=== PATIENT | female | born 1950 | race Caucasian/White ===

== ENCOUNTER → 2024-02-13 14:08 | Outpatient (REF) | payer MEDICARE, SELFPAY | LOC: RAD 14:08 | PROVIDERS: ATTENDING PHYSICIAN Student in an Organized Health Care Education/Training Program; REFERRING PHYSICIAN Internal Medicine Cardiovascular Disease | DX: E78.2 Mixed hyperlipidemia (principal); I77.9 Disorder of arteries and arterioles, unspecified; I67.89 Other cerebrovascular disease | CPT/HCPCS: 75571; 93880 ==

== ENCOUNTER 2024-06-25 16:54 | Emergency (ER) | payer MEDICARE, OTHER, SELFPAY ==
[2024-06-25 16:58] VITALS: BP 176/111
--- NOTE | 2024-06-25 16:58 | ED.GENMED ---
ED Provider Triage
<Lester Mora PA-C - Last Filed: 06/25/24 17:00>
-
Patient seen by provider in Triage?: Seen in Triage
Attestation: A medical screening examination has been initiated by a qualified medical provider. Based on the assessment performed at this time, it has been determined that an emergent medical condition may exist and the patient has been informed
that further medical evaluation and possible additional diagnostic testing may be needed.
HPI: 74-year-old female presenting to the ER for evaluation of rash and possible abscess to the left axillary area that she noticed today. States noticed some discomfort to the area and had obvious erythema and reportedly fluctuant area. No
history of similar. No history of diabetes and reports no fevers. Patient is otherwise stable. Will need room for exam and possible incision and drainage if truly abscess.
GENERAL: Alert , in no apparent distress
EYE: No visual abnormalities.
NECK: Trachea midline
ENT: No visible abnormalities.
LUNGS: No acute respiratory distress
NEUROLOGICAL: Alert and oriented
SKIN: Skin intact. No visible changes.
MUSCULOSKELETAL: Moving extremities normally
PSYCH: Normal and appropriate interaction.
This is a medical evaluation conducted in person to initiate diagnostic evaluation and provide initial therapeutics. Please see further documentation by the treating clinician.
History of Present Illness
<Lester Mora PA-C - Last Filed: 06/25/24 17:00>
General
Chief Complaint: Skin Problem
Time Seen by Provider: 06/25/24 19:02
<Dimitry Cardenas DO - Last Filed: 06/25/24 19:35>
History of Present Illness
History of Present Illness:
TIME OF INITIAL ENCOUNTER: 7:15 PM
HPI: The patient had been having a lesion to the left lower anterior chest wall that is described as fleshy in appearance. This was present over the last year or so. More recently however she noticed redness and increased pain. He made an
appointment for a hand weaver for tomorrow. She came in here because symptoms have worsened. No fevers.
EXAM:
GENERAL: Well appearing in no distress
HEENT: Moist oral mucosa
NEUROLOGIC: Excellent strength all extremities, no obvious coordination deficits
PSYCHIATRIC: Appropriate mental status, normal insight and judgement
EXTREMITIES: Nontender, no edema, moves all extremities equally
SKIN: There is a 1 cm fleshy growth however it also has a cystic component with some scant purulence noted located in the lower left anterior chest wall
NUMBER AND COMPLEXITY OF PROBLEMS ADDRESSED AT THE ENCOUNTER
� Chronic conditions affecting care: High blood pressure, hyperlipidemia, diverticular disease, anxiety/depression
� Acute Exacerbation and/or Progression of Chronic Illness: This is an acute problem
� Differential Diagnosis includes: Cellulitis, abscess, soft tissue infection
AMOUNT AND/OR COMPLEXITY OF DATA TO BE REVIEWED AND ANALYZED
� I performed an independent evaluation of and my interpretation is:
EKG:
CT:
X-rays:
Laboratory Studies:
Other:
� Review of other/old records: The patient was seen here with chest pain in 2022
� Clinical information was obtained by an independent historian: I spoke to at bedside
� Prescriptions/Medications Considered but not given:
� Further testing considered but not performed:
RISK OF COMPLICATIONS AND/OR MORBIDITY OR MORTALITY OF PATIENT MANAGEMENT
� Social determinants of health affecting care: Lives at home
� Discussion with other providers:
� Escalation of care including admission/observation vs risk of discharge considered: I cleaned the area, anesthetized with lidocaine with epi and used a scalpel and drained a moderate amount of purulent fluid. Will place on
Bactrim. The patient may or may not follow-up with the hand weaver tomorrow as this was previously already scheduled.
ANY OTHER UPDATES:
Past History
<Lester Mora PA-C - Last Filed: 06/25/24 17:00>
Past History
ED Past Medical History: HTN, Hypercholesterolemia and Hypothyroidism
ED Past Surgical History: Orthopedic
Patient has exhibited threatening behavior?: No
PSI?: No
Social History
Tobacco: Non-smoker
Phy Exam
<Dimitry Cardenas DO - Last Filed: 06/25/24 19:35>
Physical Exam
Physical Exam:
See HPI
Course
<Lester Mora PA-C - Last Filed: 06/25/24 17:00>
Orders/Labs/Results
Orders:
Orders
06/25/24 19:29
Sulfamethox./Trimethoprim Ds [Bactrim Ds 800 mg/160 mg] 1 tablet PO NOW STA
Vital Signs
Initial and Last Documented VS:
Initial Vital Signs
Temp Pulse Resp BP Pulse Ox
36.7 C 103 20 176/111 98
06/25/24 16:58 06/25/24 16:58 06/25/24 16:58 06/25/24 16:58 06/25/24 16:58
Last Documented Vital Signs
Temp Pulse Resp BP Pulse Ox
36.7 C 103 20 176/111 98
06/25/24 16:58 06/25/24 16:58 06/25/24 16:58 06/25/24 16:58 06/25/24 16:58
<Dimitry Cardenas DO - Last Filed: 06/25/24 19:35>
Orders/Labs/Results
Orders:
Orders
06/25/24 19:29
Sulfamethox./Trimethoprim Ds [Bactrim Ds 800 mg/160 mg] 1 tablet PO NOW STA
Vital Signs
Initial and Last Documented VS:
Initial Vital Signs
Temp Pulse Resp BP Pulse Ox
36.7 C 103 20 176/111 98
06/25/24 16:58 06/25/24 16:58 06/25/24 16:58 06/25/24 16:58 06/25/24 16:58
Last Documented Vital Signs
Temp Pulse Resp BP Pulse Ox
36.7 C 103 20 176/111 98
06/25/24 16:58 06/25/24 16:58 06/25/24 16:58 06/25/24 16:58 06/25/24 16:58
Procedures
<Dimitry Cardenas, DO - Last Filed: 06/25/24 19:35>
Incision/Drainage/Joint Aspiration
Left Lower Anterior Chest:
Anethesia: 1% Lidocaine with Epi
Type of procedure: incise and drain
Nature of site: abscess
Description of abscess: less than 3cm
Loculations broken up: No
How much fluid was obtained?: small amount
Fluid description: purulent
Treatment: left open for drainage
<Dimitry Cardenas DO - Last Filed: 06/25/24 19:35>
*Critical Care Note
Total Time (30-74mins, 75-104mins- exclusive of procedures): Not Applicable
ED Attending Note
<Lesetr Mroa PA-C - Last Filed: 06/25/24 17:00>
-
Portions of this chart may have been created with voice recognition software.� Occasional wrong word or��sound alike� substitutions may have occurred due to the inherent limitations of voice recognition software.
Discharge Plan
Departure
Patient Disposition: Home (Routine Discharge)
Date of Disposition: 06/25/24
Time of Disposition: 19:29
Patient with high blood pressure during this ER visit?: Yes
Discharge Problem:
Abscess
Instructions: BLOOD PRESSURE, Skin Abscess
Prescriptions:
New
sulfamethoxazole-trimethoprim [Bactrim DS] 800-160 mg tablet
1 tab PO BID Qty: 14 0RF
No Action
amlodipine 2.5 mg Tablet
2.5 mg PO DAILY
levothyroxine 50 mcg Tablet
50 mcg PO DAILY
estradiol 0.01 % (0.1 mg/gram) Cream
1 g VAGINAL .3XWEEKLY
Calcium + Vitamin D
1 tab PO DAILY
metoprolol succinate 50 mg Tablet Extended Release 24 Hr
50 mg PO HS
Referrals:
Ivan Santana MD [Family Provider] -
Activity Restrictions/Additional Instructions:
I used a scalpel to drain the area of concern and there was a moderate amount of purulent drainage. I have placed you on Bactrim. Next dose tomorrow morning. Return here if worse or other concerns. Your blood pressure is very high�follow-up with
your primary care doctor for reassessment.
Interventions
Interventions:
*General Assessment Last Done: 06/25/24 16:58
Discharge Date and Time
Print Language: TURKISH
[2024-06-25] MEDS: BACTRIM DS 800 MG/160 MG 1 TABLET PO (19:35)
[2024-06-25 19:51] VITALS: BP 170/88
== END 2024-06-25 19:52 | disposition home or self-care (01) ==
LOC: EMR 16:54
PROVIDERS: EMERGENCY PHYSICIAN Emergency Medicine; FAMILY PHYSICIAN Student in an Organized Health Care Education/Training Program
DX: L02.213 Cutaneous abscess of chest wall (principal); I10 Essential (primary) hypertension; E78.00 Pure hypercholesterolemia, unspecified; E03.9 Hypothyroidism, unspecified
CPT/HCPCS: 10060; 99283

== ENCOUNTER 2024-06-30 05:09 | Emergency (ER) | payer MEDICARE, OTHER, SELFPAY ==
[2024-06-30 05:23] VITALS: BP 154/77
[2024-06-30 07:36] LABS: % Basophils 0.7 % (0-2); % Eosinophils 1.9 % (0-6); % Immature Granulocytes 0.3 % (0-0.5); % Monocytes 8.3 % (1.7-9.3); % Neutrophils 63.8 % (42.2-75.2); Absolute Basophils 0.1 10^3/uL (0-0.2); Absolute Eosinophils 0.1 10^3/uL (0-0.7); Absolute Lymphocytes 1.8 10^3/uL (1.2-3.4); Absolute Monocytes 0.6 10^3/uL (0.1-0.6); Absolute Neutrophils 4.7 10^3/uL (1.4-6.5); Hematocrit 42.3 % (37.0-47.0); Hemoglobin 14.2 g/dL (12.0-16.0); Mean Corp Hgb Conc. 33.6 g/dL (33.0-37.0); Mean Corpuscular Hgb 28.6 pg (27.0-31.0); Mean Corpuscular Volume 85.1 fL (81.0-99.0); Mean Platelet Volume 10.1 fL (7.4-10.4); Nucleated Red Blood Cells % 0 %; Platelet Count 339 10^3/uL (130-400); Red Blood Cell Count 4.97 10^6/uL (4.20-5.40); Red Cell Dist. Width 13.8 % (11.5-14.5); White Blood Cell Count 7.4 10^3/uL (4.8-10.8)
[2024-06-30 07:50] LABS: ALT (SGPT) 23 U/L (0-35); AST (SGOT) 24 U/L (14-36); Albumin 5.1 g/dl (3.5-5.0); Alkaline Phosphatase 75 U/L (38-126); Blood Urea Nitrogen 12 mg/dl (7-17); Carbon Dioxide 23 mmol/L (22-30); Chloride 103 mmol/L (98-107); Glucose 126 mg/dl (70-99); Potassium 4.7 mmol/L (3.5-5.1); Sodium 138 mmol/L (135-145); Total Protein 8.1 g/dl (6.3-8.2); eGFR > 60.00
[2024-06-30 08:24] VITALS: BP 173/65
[2024-06-30 08:45] LABS: Troponin I < 0.012 ng/ml
[2024-06-30 09:00] VITALS: BP 131/54
--- NOTE | 2024-06-30 09:14 | ED.GENMED ---
History of Present Illness
General
Chief Complaint: Heart Rate Problem
Source: patient and spouse ( at bedside)
Exam Limitations: none
Time Seen by Provider: 06/30/24 08:57
Nursing documentation reviewed up to this point in time: agreed with
History of Present Illness
History of Present Illness:
Patient is a 74-year-old female with history hypertension, hyperlipidemia, hypothyroid presenting to the emergency department for evaluation of palpitations. Patient states beginning around 10:30 PM last night she had a feeling that her heart was
racing. She states she also felt the sensation in her neck. Symptoms persisted throughout the night prompting her visit to the emergency department. Patient denies any associated chest pain, shortness of breath, dizziness/lightheadedness, back
pain.
Patient does have a rather significant history of similar palpitations for which she follows with Dr. Vila. She has had multiple Holter monitors performed which has only ever showed PVCs. She does take metoprolol 50 mg at night. She did
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
By my assessment�patient states symptoms have essentially resolved
Patient is scheduled for an appoint with cardiology this Tuesday. She has a cardiac echo scheduled for June.
Past History
Past History
ED Past Medical History: HTN, Hypercholesterolemia and Hypothyroidism
ED Past Surgical History: Orthopedic
Patient has exhibited threatening behavior?: No
PSI?: No
Social History
Tobacco: Non-smoker
Review of Systems
Review of Systems
Allergies reviewed?: Yes
All Other Systems: ROS reviewed and negative except as documented in HPI and ROS
Phy Exam
Physical Exam
Physical Exam:
Vitals: Hypertensive, otherwise vital signs stable. Afebrile
General: Patient is well appearing, no acute distress
Skin: Warm and dry, no rashes or lesions
Head: Normocephalic, atraumatic
Eyes: Sclera nonicteric. EOMs intact. No nystagmus.
Throat: Protecting airway
Neck: Normal ROM, no cervical spine tenderness, no meningismus. No JVD
Cardiac: Regular rate and rhythm, no murmurs. Peripheral pulses palpable and equal bilaterally
Pulm: Normal respiratory effort, no wheezes, rales, rhonchi heard on exam.
Abdomen: No abdominal tenderness.
Extremities: No evidence of cyanosis or edema.
Neuro: AAOx3. Grossly intact.
Psychiatric: Normal affect.
Course
Orders/Labs/Results
Orders:
Orders
06/30/24 05:13
ECG [Electrocardiogram (*1)] Urgent
Reason for Study: Tachycardia
Cardiology Consult: Unknown
EKG- Treatment ONCE
06/30/24 07:23
Complete Blood Count/With Diff Urgent
Comprehensive Metabolic Panel Urgent
TSH Reflex To Free T4 Urgent
Comment: ADD ON
Troponin I Urgent
06/30/24 09:14
Add On- LAB Urgent
Tests Added?: TSH w/ reflex to T4
06/30/24 10:16
Orthostatic VS- Treatment ONCE
06/30/24 10:[address] Non Medication Order As Directed
Physician Order: walking pulse ox
Abnormal Lab Results
06/30/24
07:23
Glucose 126 H mg/dl
(70-99)
Albumin 5.1 H g/dl
(3.5-5.0)
06/30/24 07:23
06/30/24 07:23
Vital Signs
Initial and Last Documented VS:
Initial Vital Signs
Temp Pulse Resp BP Pulse Ox
98.2 F 71 20 154/77 95
06/30/24 05:23 06/30/24 05:23 06/30/24 05:23 06/30/24 05:23 06/30/24 05:23
Last Documented Vital Signs
Temp Pulse Resp BP Pulse Ox
98.2 F 63 18 112/75 95
06/30/24 05:23 06/30/24 10:15 06/30/24 10:15 06/30/24 10:00 06/30/24 10:15
MDM/Problems Addressed
Differential Diagnosis Includes:
Not limited to: Cardiac arrhythmia, PVCs, hyperthyroid, dehydration, viral illness, etc.
MDM/Problems Addressed:
74-year-old female presenting with palpitations since last night, essentially resolved by my assessment. No associated chest pain, shortness of breath, lightheadedness/dizziness, or syncopal episodes. Patient does have history of similar
palpitations, PVCs. Patient hypertensive on arrival, otherwise has stable vital signs. Physical exam as above. Heart regular rate and rhythm. Lungs are clear bilaterally. No evidence of lower extremity edema. Patient in normal sinus rhythm on
monitor while I was in room with only 1 PVC noted. EKG that was obtained in triage shows a normal sinus rhythm. No evidence of arrhythmia. Labs initiated in triage without any clinically significant abnormalities. A troponin was run which was
undetectable. Will add on TSH and watch patient on monitor. Anticipate discharge.
Update: TSH within normal limits. Patient remained asymptomatic while in emergency department. 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 Patient mildly orthostatic. Patient walking throughout department
without any palpitations. Suspect symptoms secondary to history of PVCs. Feel patient is stable for discharge home with cardiology follow-up on Tuesday. Will advise patient stable hydrated. Return precaution discussed. Case discussed with
attending physician.
Chronic conditions affecting care:
Hypertension, hypothyroid
Acute Exacerbation and/or Progression of Chronic Illness:
Acutely hypertensive
*Pulse Oximetry
Patient hypoxic: no
*EKG
Interpreted by ED Provider?: Yes
EKG Intrepretation Date: 06/30/24
Interpretation: normal
Comparison EKG: no changes
Heart Rate: 69
Rate: normal
Rhythm: sinus
Howe: left axis deviation
Interval: normal interval
QRS Pattern: normal QRS
Ischemia: no ischemia
*Engineering Tech Interpretation
Rate: normal
Interpretation: normal
Heart Rate: 64
Rhythm: sinus
*Critical Care Note
Total Time (30-74mins, 75-104mins- exclusive of procedures): Not Applicable
Data Reviewed
Review of Other/Old Records Reveals: Testing (Stress echocardiogram performed 09/30/2022, EF 55 to 60% noted with occasional asymptomatic PVCs)
ED Attending Note
-
Portions of this chart may have been created with voice recognition software.� Occasional wrong word or��sound alike� substitutions may have occurred due to the inherent limitations of voice recognition software.
Discharge Plan
Departure
Patient Disposition: Home (Routine Discharge)
Date of Disposition: 06/30/24
Time of Disposition: 11:41
Patient with high blood pressure during this ER visit?: No
Condition: Good
Covid-19: Not Applicable
Discharge Problem:
Palpitations
Instructions: Palpitations (DC)
Prescriptions:
No Action
amlodipine 2.5 mg Tablet
2.5 mg PO DAILY
levothyroxine 50 mcg Tablet
50 mcg PO DAILY
estradiol 0.01 % (0.1 mg/gram) Cream
1 g VAGINAL .3XWEEKLY
Calcium + Vitamin D
1 tab PO DAILY
metoprolol succinate 50 mg Tablet Extended Release 24 Hr
50 mg PO HS
sulfamethoxazole-trimethoprim [Bactrim DS] 800-160 mg tablet
1 tab PO BID Qty: 14 0RF
Referrals:
Ivan Santana MD [Family Provider] -
Janel Vila MD [Active] - Keep scheduled appt
Activity Restrictions/Additional Instructions:
RETURN TO THE EMERGENCY DEPARTMENT WITH ANY CHEST PAIN, SHORTNESS OF BREATH, LIGHTHEADEDNESS/DIZZINESS, FAINTING EPISODES, WORSENING IN CURRENT SYMPTOMS, OR ANY OTHER CONCERNS
-As discussed�it is important to stay well-hydrated. You should continue to take your medications, including your metoprolol as directed by your open hearth worker.
-Your thyroid study is still pending. I will call you if the levels are out of range.
-Follow-up with your open hearth worker as scheduled for this Tuesday.
Monitor your symptoms closely return to the emergency department with any acute worsening/new symptoms or any other concerns
Interventions
Interventions:
*Risk Screen - Suicide Last Done: 06/30/24 05:23
*General Assessment Last Done: 06/30/24 05:23
*Neglect/Abuse Screening Last Done: 06/30/24 05:23
ED- Fall Risk Assessment Last Done: 06/30/24 05:23
*ED COVID-19 Vaccine History Last Done: 06/30/24 05:23
*Nursing Disposition Last Done: 06/30/24 12:20
ED- Cardiac Assessment Last Done: 06/30/24 10:17
ED- Pulmonary Assessment Last Done: 06/30/24 10:17
Discharge Date and Time
Discharge Date/Time: 06/30/24 12:21
Print Language: RWANDAN
[2024-06-30 10:00] VITALS: BP 112/75
[2024-06-30 10:43] VITALS: BP 122/72; BP 124/57; BP 128/66; PULSE 58; PULSE 64; PULSE 79
[2024-06-30 11:32] LABS: TSH Reflex To Free T4 1.55 uIU/ml (0.47-4.68)
== END 2024-06-30 12:21 | disposition home or self-care (01) ==
LOC: EMR 05:09
PROVIDERS: Emergency Medicine; EMERGENCY PHYSICIAN Emergency Medicine; FAMILY PHYSICIAN Student in an Organized Health Care Education/Training Program
DX: R00.2 Palpitations (principal); I10 Essential (primary) hypertension; E78.00 Pure hypercholesterolemia, unspecified; E03.9 Hypothyroidism, unspecified
CPT/HCPCS: 99284; 80053; 84443; 84484; 85025; 93005

== ENCOUNTER → 2024-07-20 13:33 | Outpatient (REF) | payer MEDICARE, OTHER, SELFPAY | LOC: RCS 13:33 | PROVIDERS: ATTENDING PHYSICIAN Internal Medicine Cardiovascular Disease; FAMILY PHYSICIAN Student in an Organized Health Care Education/Training Program | DX: R00.2 Palpitations (principal); I35.1 Nonrheumatic aortic (valve) insufficiency; I34.0 Nonrheumatic mitral (valve) insufficiency | CPT/HCPCS: 93306 ==